=== PATIENT | female | born 1975 | race Caucasian/White ===

== ENCOUNTER 2018-12-18 18:27 | Emergency (ER) | payer OTHER ==
[~2018-12-18] VITALS: Ht 170.2 cm; Wt 64.0 kg
--- NOTE | 2018-12-18 18:33 | NUR ---
PT BIBRA FROM [facility] FOR [facility]; PER REPORT PT TRYING TO GET COUGH SYRUP MED REFILL TO POSSIBLY OD; PT DENIES SI/HI, PT ON MONITOR, VSS, NAD NOTED, PENDING ER PROVIDER DELL
[2018-12-18 19:00] LABS: BASOPHILS # (AUTO) 0.1 /CMM (0.0-0.2); BASOPHILS % (AUTO) 0.8 % (0.0-2.0); EOSINOPHILS % (AUTO) 1.4 % (0.0-6.0); HEMATOCRIT 40 % (33-45); HEMOGLOBIN 13.5 g/dL (11.5-14.8); LYMPHOCYTES # (AUTO) 1.2 /CMM (0.8-4.8); LYMPHOCYTES % (AUTO) 15.6 % (20.0-44.0); MEAN CORPUSCULAR HGB CONC 34 g/dl (31.0-36.0); MEAN CORPUSCULAR VOLUME 102 fL (82-100); MONOCYTES # (AUTO) 0.4 /CMM (0.1-1.30); MONOCYTES % (AUTO) 5.3 % (2.0-12.0); NEUTROPHILS # (AUTO) 5.9 /CMM (1.8-8.9); NEUTROPHILS % (AUTO) 76.9 % (43.0-81.0); PLATELET COUNT (AUTO) 233 /CMM (150-450); RED BLOOD CELL COUNT(AUTO) 3.88 MIL/uL (4.0-5.2); WHITE BLOOD COUNT (AUTO) 7.6 K/uL (4.3-11.0)
[2018-12-18 19:14] LABS: CARBON DIOXIDE 26 mmol/L (21-32); CHLORIDE 103 mmol/L (98-107); CREATININE 0.7 mg/dL (0.6-1.3); GLUCOSE 118 mg/dL (74-106); POTASSIUM 3.8 mmol/L (3.5-5.1); SODIUM SERUM 136 mmol/L (136-145); UREA NITROGEN, BLOOD 12 mg/dL (7-18)
--- NOTE | 2018-12-18 19:18 | NUR ---
CALLED MACHINE SET UP MAU, REQUESTED FOR A 1 TO 1 SITTER
[2018-12-18 19:22] LABS: APPEARANCE,URINE Slightly Cloudy (CLEAR); BILIRUBIN,URINE Negative (NEGATIVE); BLOOD, URINE Moderate Ery/uL (NEGATIVE); COLOR,URINE Yellow (YELLOW); KETONES,URINE Negative (NEGATIVE); LEUKOCYTE ESTERASE ,URINE Negative (NEGATIVE); NITRITE, URINE Negative (NEGATIVE); PROTEIN,URINE Negative (NEGATIVE); UGLUCOSE Negative (NEGATIVE); UROBILINOGEN,URINE 0.2 EU/dL (0.2)
[2018-12-18 19:28] LABS: ALANINE AMINOTRANSFERASE 17 U/L (12-78); ALCOHOL, BLOOD < 3 mg/dL (0-0); ALKALINE PHOSPHATASE 64 U/L (46-116); ASPARTATE AMINOTRANSFERASE 12 U/L (15-37); BILIRUBIN,DIRECT 0.1 mg/dL (0.0-0.2); BILIRUBIN,TOTAL 0.3 mg/dL (0.2-1.0); SALICYLATE 3.9 mg/dL (2.8-20.0); TOTAL PROTEIN, SERUM 7.3 g/dL (6.4-8.2)
[2018-12-18 19:31] LABS: ACETAMINOPHEN < 2 ug/ml (10-30)
[2018-12-18 19:38] LABS: BACTERIA,URINE Few /HPF (None Seen); SQUAMOUS EPITHELIAL CELL,UR Few /HPF (None Seen); WBC,URINE 0-2 /HPF (0-3)
--- NOTE | 2018-12-18 20:24 | NUR ---
1 TO 1 SITTER BEDSIDE WITH PT.
--- NOTE | 2018-12-18 22:43 | NUR ---
CALLED CRISIC CLINICIAN
--- NOTE | 2018-12-18 23:20 | NUR ---
Assumed care pf pt from [facility]. Pt sleeping , no signs of distress, sitter present.
--- NOTE | 2018-12-18 23:22 | NUR ---
REPORT GIVEN TO AZIZA LOVELL FOR JENNIFER
--- NOTE | 2018-12-18 23:51 | NUR ---
RECEIVED A CALL FROM POISON CONTROL. I WAS TOLD TO CONTINUE TO MONITOR PT. I WAS TOLD PT IS "LIKELY OUT OF THE CRITICAL STATE".
--- NOTE | 2018-12-19 | NUR ---
Pt walking in the hallway, wanting to leave. 5150 hold status explained.
--- NOTE | 2018-12-19 00:15 | NUR ---
Yanira, Psych Clinician at
--- NOTE | 2018-12-19 01:00 | NUR ---
Pt has been cleared from Psych stand point, 5150 hold status lifted. Pt stated she will go back to the sober living facility where she resides, denies any thought of harming herself. VSS.
[2018-12-19 01:08] VITALS: BP 128/84
--- NOTE | 2018-12-19 01:09 | NUR ---
Patient discharged to home in stable condition, denies any suicidal ideation. Written and verbal after care instructions given. Patient verbalizes understanding of instruction.
== END 2018-12-19 01:08 | disposition home or self-care (01) ==
LOC: ER 18:29
DX: T48.3X1A Poisoning by antitussives, accidental (unintentional), initial encounter (principal); F20.0 Paranoid schizophrenia; F32.9 Major depressive disorder, single episode, unspecified; F41.9 Anxiety disorder, unspecified; I51.7 Cardiomegaly; Y92.89 Other specified places as the place of occurrence of the external cause
CPT/HCPCS: 36415; 80048-TC; 80076-TC; 80305; 81000-TC; 84703-TC; 85025-TC; G0480